=== PATIENT | female | born 1975 | race Caucasian/White ===

== ENCOUNTER 2021-02-09 20:58 | Emergency (ER) | payer OTHER ==
[2021-02-09] MEDS ORDERED: Boostrix 0.5 ML (Tdap) VIAL ONE (22:57)
[2021-02-09] MEDS ORDERED: HYDROcodone/Acetaminophen 5/325 mg Tablet ONE (22:58)
== END 2021-02-09 23:01 | disposition home or self-care (01) ==
LOC: CSHERS 20:58
DX: S93.402A Sprain of unspecified ligament of left ankle, initial encounter (principal); M79.662 Pain in left lower leg; W17.2XXA Fall into hole, initial encounter
CPT/HCPCS: 90715